=== PATIENT | female | born 1975 | race Caucasian/White ===

== ENCOUNTER 2016-03-21 12:15 | Day surgery (SDC) | payer OTHER ==
[~2016-03-21] VITALS: Ht 157.5 cm; Wt 108.0 kg
[~2016-03-21 12:15] MED LIST: ATOR80TA PO; INSU100I SUBQ; INSU100V7 SUBQ; METF500T7 PO; OMEP20CA11 PO; fentaNYL-PF 50 mCg/mL 2 mL Inj IVPUSH PRN
[2016-03-21 12:24] VITALS: BP 142/71; PULSE 72; RESP 14; O2SAT 96
[2016-03-21] MEDS: 0.9% Sodium Chloride 1,000 ML IV SCH ×3 (12:38→13:52)
[2016-03-21 13:33] VITALS: BP 120/66; PULSE 73; RESP 14; O2SAT 93
[2016-03-21 13:42] VITALS: BP 99/54; PULSE 73; RESP 14; O2SAT 95
--- NOTE | 2016-03-21 13:45 | ENDO ---
[address] [address] ENDOSCOPY PROCEDURE PATIENT: JACEY DYSON : 1975 MR#: [id number] ADMIT: 03/21/2016 JOB ID: [id number] PREPROCEDURE DIAGNOSIS: Dysphagia. POSTPROCEDURE DIAGNOSIS: Dysphagia. PROCEDURE PERFORMED: Upper endoscopy. SURGEON: Erin Levin MD Instrument: Olympus GIF [id number] Medications: Versed 7mg, Fentanyl 125 mcg HISTORY OF PRESENT ILLNESS: This is a 40-year-old woman who presented with progressive dysphagia to multiple foods including vegetables, chicken, and bread. She also reported regurgitation of food and mucus. Her mother had a history of Hackett's esophagus and GERD. She has a BMI of 45. She was worried about the reason for her dysphagia. For this reason, upper endoscopy was performed. FINDINGS: Entirely normal upper endoscopy with normal esophagus, normal squamocolumnar junction, no hiatal hernia, normal stomach, and normal duodenum. DESCRIPTION OF PROCEDURE: The patient was brought to the procedural suite and placed in left decubitus position. Moderate sedation was induced. A bite block was placed. The endoscope was advanced to the proximal esophagus. It was advanced and the entire esophagus was found to be normal. Careful inspection of the squamocolumnar junction revealed no abnormalities whatsoever. The endoscope was advanced into the stomach. This was carefully inspected and there were no polyps, strictures, masses, erosions, or erythema. The pylorus was normal. The visualized portion of the duodenum to D3 was normal. The endoscope was withdrawn and retroflexed. She had a Hill grade 2 flap valve, but no hiatal hernia. The endoscope was withdrawn back into the esophagus. The squamocolumnar junction was reexamined to confirm that there were no strictures. It was then withdrawn and the procedure was complete. COMPLICATIONS: None. SPECIMENS: None. ESTIMATED BLOOD LOSS: None. MTDD
[2016-03-21 13:48] VITALS: BP 89/51; PULSE 67; RESP 14; O2SAT 96
[2016-03-21 13:51] VITALS: BP 100/55; PULSE 67; RESP 14; O2SAT 96
[2016-03-21 13:56] VITALS: BP 109/59; PULSE 76; RESP 16; O2SAT 98
== END 2016-03-21 23:59 | disposition home or self-care (01) ==
LOC: END 12:15
PROVIDERS: ATTEND Surgery
DX: R13.14 Dysphagia, pharyngoesophageal phase (principal); E11.9 Type 2 diabetes mellitus without complications; Z68.42 Body mass index [BMI] 45.0-49.9, adult; Z79.4 Long term (current) use of insulin; Z79.899 Other long term (current) drug therapy
CPT/HCPCS: 43235; G0500; J2250; J7030